=== PATIENT | male | born 1990 | race Caucasian/White ===

== ENCOUNTER 2022-03-11 02:41 | Emergency (ER) | payer OTHER ==
[~2022-03-11] VITALS: Ht 185.4 cm; Wt 72.6 kg
--- NOTE | 2022-03-11 03:01 | NUR ---
BIBRA 86 FOR C/O "I HAD 5 SHOTS OF TEQUILA AND I THINK ONE OF THEM HAD SOMETHING IN IT" PT AAOX3. TOLERATING R/A WELL WITH NO RESP DISTRESS. RR EVEN AND NONLABORED. SAFETY MEASURES IN PLACE.
--- NOTE | 2022-03-11 03:04 | NUR ---
TOVA (FRIEND EMERGENCY CONTACT) [phone]
--- NOTE | 2022-03-11 03:23 | NUR ---
ACCUCHECK BS 111
--- NOTE | 2022-03-11 05:58 | NUR ---
DCPatient discharged to home in stable condition. Written and verbal after care instructions given. Patient verbalizes understanding of instruction. PT ambulatory with a steady gait
[2022-03-11 06:00] VITALS: BP 140/80
== END 2022-03-11 06:01 | disposition home or self-care (01) ==
LOC: ER 02:46
DX: F10.129 Alcohol abuse with intoxication, unspecified (principal); Z60.2 Problems related to living alone; Y90.9 Presence of alcohol in blood, level not specified
CPT/HCPCS: 82962-TC